=== PATIENT | male | born 1945 ===

== ENCOUNTER 2017-05-20 22:11 | Observation (INO) | payer MEDICARE ==
--- NOTE | 2017-05-20 23:00 | ED PDOC ---
HPI: Pediatric General Time Seen by Provider: 05/20/17 22:26 Chief Complaint (Nursing): Cough, Cold, Congestion Past Medical History Vital Signs: Last Vital Signs Temp 101.2 F H 05/20/17 22:14 Pulse 116 H 05/20/17 22:14 Resp 16 05/20/17 22:14 BP 141/79 05/20/17 22:14 Pulse Ox 100 05/20/17 22:14 - Allergies Allergies/Adverse Reactions: Allergies Allergy/AdvReac Type Severity Reaction Status Date / Time No Known Allergies Allergy Verified 05/20/17 22:14 - ECG O2 Sat by Pulse Oximetry: 100 Disposition - Disposition Forms: [employer] ([place])
--- NOTE | 2017-05-20 23:05 | ED PDOC ---
HPI: CCC, URI, Sore Throat Time Seen by Provider: 05/20/17 22:26 Chief Complaint (Nursing): Cough, Cold, Congestion Chief Complaint (Provider): Fever, Cough, Hiccups History Per: Patient History/Exam Limitations: no limitations Onset/Duration Of Symptoms: Days (x1 day) Current Symptoms Are (Timing): Still Present Associated Symptoms: Fever, Cough, Sputum Additional Complaint(s): Hammad Harrison, a 71 year old female, who has a past medical history of hypertension and diabetes presents to the ED with complaining of cough, fever and hiccups x1 day. The patient reports that his symptoms started this afternoon. e states that the hiccups have resolved but he still has fever and is experiencing some chills. The patient reports that his cough is productive of yellow sputum and that he has chest pain when he coughs. Denies difficulty breathing, vomiting and diarrhea. PMD: Past Medical History Reviewed: Historical Data, Nursing Documentation, Vital Signs Vital Signs: Last Vital Signs Temp 101.2 F H 05/20/17 23:03 Pulse 100 H 05/20/17 23:47 Resp 16 05/20/17 22:14 BP 141/79 05/20/17 22:14 Pulse Ox 100 05/20/17 23:47 - Medical History PMH: HTN, Hyperlipidemia - Surgical History Surgical History: No Surg Hx - Family History Family History: States: Unknown Family Hx - Allergies Allergies/Adverse Reactions: Allergies Allergy/AdvReac Type Severity Reaction Status Date / Time No Known Allergies Allergy Verified 05/20/17 22:14 Curb-65 Severity Score - CURB-65 Severity Score Confusion: No Bun >19mg/dl (>7mmol/L): No Respiratory Rate greater than/equal to 30: No Systolic BP <90 or Diastolic BP less than/equal 60mmHg: No Age >64: Yes Curb-65 Score: 1 Percentage 30-day mortality: 2.7% Review of Systems Constitutional: Positive for: Fever, Chills, Other (Hiccups.) Cardiovascular: Positive for: Chest Pain (Chest Pain with cough.) Respiratory: Positive for: Cough (Cough productiv of yellow sputum.) Gastrointestinal: Negative for: Vomiting, Diarrhea Physical Exam - Reviewed Nursing Documentation Reviewed: Yes Vital Signs Reviewed: Yes - Physical Exam Appears: Positive for: Non-toxic, No Acute Distress Head Exam: Positive for: ATRAUMATIC, NORMAL INSPECTION, NORMOCEPHALIC Skin: Positive for: Normal Color, Warm, Dry Eye Exam: Positive for: Normal appearance, EOMI, PERRL ENT: Positive for: Normal ENT Inspection Neck: Positive for: Normal, Painless ROM, Supple Cardiovascular/Chest: Positive for: Regular Rate, Rhythm, Tachycardia Respiratory: Positive for: Normal Breath Sounds. Negative for: Wheezing, Respiratory Distress Gastrointestinal/Abdominal: Positive for: Normal Exam, Bowel Sounds, Soft. Negative for: Tenderness Back: Positive for: Normal Inspection Extremity: Positive for: Normal ROM. Negative for: Tenderness, Deformity, Swelling Neurologic/Psych: Positive for: Alert, Oriented, Gait - Laboratory Results Result Diagrams: 05/20/17 22:58 05/20/17 22:58 - ECG ECG: Positive for: Interpreted By Me, Viewed By Me ECG Rhythm: Positive for: Normal QRS, Normal ST Segment, Sinus Rhythm, Sinus Tachycardia Rate: 100 O2 Sat by Pulse Oximetry: 100 (RA) Pulse Ox Interpretation: Normal - Radiology X-Ray: Interpreted by Me, Viewed By Me X-Ray Interpretation: Infiltrates (RLL) Medical Decision Making Medical Decision Makin Initial Impression: 71 year old male presenting with fever and cough Differentials: Pnuemonia, Sepsis and other conditions considered Initial Plan: * Venous Blood Gas * EKG * Comp Metabolic Panel * CBC * Chest X-ray * Tylenol 650mg PO * Blood Culture * Influenza A B * Reevaluation Scribe Attestation Documented by Yenifer Cm acting as a scribe for Joaquin Fournier MD. Provider Attestation All medical record entries made by the Scribe were at my direction and personally dictated by me. I have reviewed the chart and agree that the record accurately reflects my personal performance of the history, physical exam, medical decision making, and the department course for this patient. I have also personally directed, reviewed, and agree with the discharge instructions and disposition. Disposition - Clinical Impression Clinical Impression: Pneumonia - Patient ED Disposition Is Patient to be Admitted: Yes Discussed With DrGwen: Bobby Adams Doctor Will See Patient In The: Hospital - Disposition Disposition Time: 23:40 Condition: FAIR - Pt Status Changed To: Hospital Disposition Of: Inpatient - Admit Certification Admit to Inpatient:: After my assessment, the patient will require hospitalization for at least two midnights. This is because of the severity of symptoms shown, intensity of services needed, and/or the medical risk in this patient being treated as an outpatient. - POA Present On Arrival: Poor Glycemic Control Core Measure Indicators: Pneumonia
[2017-05-20 23:07] LABS: BASO % 0.2 % (0.0-2.0); EOS % 0.2 % (0.0-4.0); HEMATOCRIT 37.5 % (35.0-51.0); LYMPH # 1.3 K/uL (1.0-4.3); LYMPH % 8.6 % (20.0-40.0); MEAN CORPUSCULAR HEMOGLOBIN 32.9 pg (27.0-31.0); MEAN CORPUSCULAR HGB CONC 33.6 g/dL (33.0-37.0); MEAN PLATELET VOLUME 9.4 fl (7.2-11.7); MONO # 1.1 K/uL (0.0-0.8); MONO % 7.2 % (0.0-10.0); NEUT # 12.7 K/uL (1.8-7.0); NEUT % 83.8 % (50.0-75.0); PLATELET COUNT 133 K/uL (130-400); RED CELL DISTRIBUTION WIDTH 12.5 % (11.5-14.5); WHITE BLOOD COUNT 15.2 K/uL (4.8-10.8)
[2017-05-20] MEDS ORDERED: Azithromycin 500 MG in Sodium Chloride 0.9% 250 ML IVPB STA (23:15)
[2017-05-20 23:16] LABS: ALB/GLOB RATIO 1.3 (1.0-2.1); BILIRUBIN,TOTAL 0.7 mg/dl (0.2-1.3); CALCIUM 9.3 mg/dL (8.4-10.2); POTASSIUM 4.4 MMOL/L (3.6-5.0); TOTAL PROTEIN 7.9 G/DL (6.3-8.2)
[2017-05-20] MEDS ORDERED: cefTRIAXone (Rocephin) 1 gm Inj ONE (23:20)
[2017-05-21 00:10] LABS: VENOUS BLOOD GAS BASE EXCESS -0.7 mmol/L (0.0-2.0); VENOUS BLOOD GAS MODE ROOM AIR; VENOUS BLOOD GAS PCO2 36 mmHg (40-60); VENOUS BLOOD PH 7.42 (7.32-7.43)
[2017-05-21] MEDS ORDERED: Sodium Chloride 3% for Inhalation 4 ML VIAL.NEB IH PRN ×2 (00:50→01:49)
[2017-05-21 01:23] LABS: NEUTROPHIL 89 % (42-75); TOTAL CELLS COUNTED 100
[2017-05-21 07:00] LABS: ALB/GLOB RATIO 1.2 (1.0-2.1); ALKALINE PHOSPHATASE 59 U/L (38-126); ALT/SGPT 24 U/L (21-72); AST/SGOT 19 U/L (17-59); BILIRUBIN,TOTAL 0.8 mg/dl (0.2-1.3); BLOOD UREA NITROGEN 17 mg/dl (9-20); CALCIUM 9.1 mg/dL (8.4-10.2); CARBON DIOXIDE 27 mmol/L (22-30); CHLORIDE 107 mmol/L (98-107); GFR AFRICAN-AMERICAN > 60; GLUCOSE,RANDOM 176 mg/dL (75-110); POTASSIUM 4.4 MMOL/L (3.6-5.0); SODIUM 141 mmol/l (132-148); TOTAL PROTEIN 7.2 G/DL (6.3-8.2)
[2017-05-21 07:06] LABS: BASO % 0.2 % (0.0-2.0); EOS # 0.1 K/uL (0.0-0.7); EOS % 0.5 % (0.0-4.0); HEMATOCRIT 35.2 % (35.0-51.0); LYMPH % 14.2 % (20.0-40.0); MEAN CELL VOLUME 97.7 fl (80.0-94.0); MEAN CORPUSCULAR HEMOGLOBIN 33.4 pg (27.0-31.0); MEAN CORPUSCULAR HGB CONC 34.2 g/dL (33.0-37.0); MEAN PLATELET VOLUME 9.5 fl (7.2-11.7); MONO # 1.1 K/uL (0.0-0.8); MONO % 7.7 % (0.0-10.0); NEUT # 11.1 K/uL (1.8-7.0); NEUT % 77.4 % (50.0-75.0); NRBC % 0.1 % (0.0-0.0); RED CELL DISTRIBUTION WIDTH 12.7 % (11.5-14.5); WHITE BLOOD COUNT 14.4 K/uL (4.8-10.8)
--- NOTE | 2017-05-21 08:06 | CP.PCM.HP ---
History of Present Illness - History of Present Illness History of Present Illness: A 71 year old male with history of hypertension and diabetes came for fever, sputum and hiccup for one day. He has been taking medicines for hypertension and diabetes and some vitamins. He started hiccupping one day ago. He had fever, and yellowish sputum with cough. He did not have shortness of breath. He is a non-smoker. 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 He had a similar episode 30 years ago. It started with hiccupping and led to choking. Present on Admission - Present on Admission Any Indicators Present on Admission: No History of DVT/PE: No History of Uncontrolled Diabetes: No Urinary Catheter: No Decubitus Ulcer Present: No Review of Systems - Constitutional Constitutional: Chills. absent: Excessive Sweating, Night Sweats - Cardiovascular Cardiovascular: Chest Pain (on coughing). absent: Dyspnea on Exertion - Respiratory Respiratory: Cough. absent: Dyspnea - Gastrointestinal Gastrointestinal: absent: Belching, Early Satiety, Vomiting - Genitourinary Genitourinary: absent: Difficulty Urinating, Dysuria Past Patient History - Past Medical History & Family History Past Medical History?: Yes - Past Social History Smoking Status: Never Smoked - CARDIAC Hx Cardiac Disorders: Yes Hx Hypercholesterolemia: Yes Hx Hypertension: Yes - PULMONARY Hx Respiratory Disorders: No - NEUROLOGICAL Hx Neurological Disorder: No - HEENT Hx HEENT Problems: Yes - RENAL Hx Chronic Kidney Disease: No - ENDOCRINE/METABOLIC Hx Endocrine Disorders: Yes Hx Diabetes Mellitus Type 2: Yes - HEMATOLOGICAL/ONCOLOGICAL Hx Blood Disorders: No - INTEGUMENTARY Hx Dermatological Problems: No - MUSCULOSKELETAL/RHEUMATOLOGICAL Hx Musculoskeletal Disorders: No Hx Falls: No - GASTROINTESTINAL Other/Comment: hx hiccups - GENITOURINARY/GYNECOLOGICAL Hx Genitourinary Disorders: No - PSYCHIATRIC Hx Psychophysiologic Disorder: No Hx Substance Use: No - SURGICAL HISTORY Hx Surgeries: No - ANESTHESIA Hx Anesthesia: No Hx Anesthesia Reactions: No Hx Malignant Hyperthermia: No Has any member of the family had a problem w/ anesthesia?: No Meds Allergies/Adverse Reactions: Allergies Allergy/AdvReac Type Severity Reaction Status Date / Time No Known Allergies Allergy Verified 05/20/17 22:14 Physical Exam - Constitutional Appears: No Acute Distress - Neck Exam Neck exam: Positive for: Full Rom, Normal Inspection - Respiratory Exam Respiratory Exam: Clear to Auscultation Bilateral, NORMAL BREATHING PATTERN - Cardiovascular Exam Cardiovascular Exam: REGULAR RHYTHM, +S1, +S2. absent: Systolic Murmur - GI/Abdominal Exam GI & Abdominal Exam: Normal Bowel Sounds, Soft. absent: Tenderness - Extremities Exam Extremities exam: Positive for: normal inspection. Negative for: joint swelling , pedal edema Results - Vital Signs Recent Vital Signs: Last Vital Signs Temp 99.3 F 05/21/17 00:45 Pulse 100 H 05/21/17 00:35 Resp 16 05/20/17 22:14 BP 141/79 05/20/17 22:14 Pulse Ox 100 05/21/17 00:35 - Labs Result Diagrams: 05/21/17 05:30 05/21/17 05:30 Labs: Laboratory Results - last 24 hr 05/21/17 05/21/17 05:30 05:30 WBC 14.4 H RBC 3.60 L Hgb 12.0 Hct 35.2 MCV 97.7 H MCH 33.4 H MCHC 34.2 RDW 12.7 Plt Count 128 L MPV 9.5 Neut % (Auto) 77.4 H Lymph % (Auto) 14.2 L Camp % (Auto) 7.7 Eos % (Auto) 0.5 Baso % (Auto) 0.2 Neut # 11.1 H Lymph # 2.0 Camp # 1.1 H Eos # 0.1 Baso # 0.0 Sodium 141 Potassium 4.4 Chloride 107 Carbon Dioxide 27 Anion Gap 12 BUN 17 Creatinine 1.4 Est GFR ( Amer) > 60 Est GFR (Non-Af Amer) 50 Random Glucose 176 H Calcium 9.1 Total Bilirubin 0.8 AST 19 ALT 24 Alkaline Phosphatase 59 Total Protein 7.2 Albumin 4.0 Globulin 3.3 Albumin/Globulin Ratio 1.2 Assessment & Plan - Assessment and Plan (Free Text) Assessment: A 71 year old male came with fever, productive cough chest X-ray mild RLL infiltration leukocytosis DM HTN Plan: blood and sputum culture iv antibiotics, Rocephin and zithromax DM and BP control - Date & Time Date: 05/21/17 Time: 08:09
[2017-05-21] MEDS ORDERED: Ergocalciferol 50,000 Intl Units Cap PO SCH (08:15)
[2017-05-21] MEDS: Azithromycin 500 MG in Sodium Chloride 0.9% 250 ML IVPB SCH (08:22)
[2017-05-21] MEDS: Insulin Regular 100 units/ml SC SCH ×4 (08:30→23:00)
--- NOTE | 2017-05-21 10:12 | CARD ---
APPROVED REPORT EKG Measurement Heart [id number] <Conclusion> Normal sinus rhythm Normal ECG
--- NOTE | 2017-05-21 12:00 | RAD ---
HISTORY: cough fever COMPARISON: 09/29/2012 TECHNIQUE: Chest PA and lateral FINDINGS: LUNGS: No active pulmonary disease. PLEURA: No significant pleural effusion identified. No pneumothorax apparent. CARDIOVASCULAR: Normal. OSSEOUS STRUCTURES: No significant abnormalities. VISUALIZED UPPER ABDOMEN: Normal. OTHER FINDINGS: None. IMPRESSION: No active disease.
[2017-05-21] MEDS: diltiaZEM 180 mg/24 Hours CD Cap PO SCH (12:33)
[2017-05-21] MEDS: Enoxaparin 40 mg Syringe SC SCH (12:36)
[2017-05-21] MEDS: Levothyroxine 88 MCG TAB PO SCH (12:38)
[2017-05-21] MEDS: Metoprolol Succinate 25 mg XL Tab PO SCH ×4 (12:38→12:45)
[2017-05-21] MEDS: HYDROCHLOROTHIAZIDE PO SCH (17:03)
[2017-05-21] MEDS: LOSARTAN PO SCH (17:03)
[2017-05-21] MEDS: PARICALCITOL 1 MCG PO SCH (17:04)
[2017-05-22] MEDS: Levothyroxine 88 MCG TAB PO SCH (06:46)
--- NOTE | 2017-05-22 07:42 | CP.PCM.PN ---
Subjective - Date & Time of Evaluation Date of Evaluation: 05/22/17 Time of Evaluation: 07:35 - Subjective Subjective: hiccupping yesterday Benadryl po one does was given. he thinks something is inside his chest denies dysphagia Objective - Vital Signs/Intake and Output Vital Signs (last 24 hours): Temp Pulse Resp BP Pulse Ox 98.1 F 62 19 124/72 98 05/22/17 00:43 05/22/17 00:43 05/22/17 00:43 05/22/17 00:43 05/22/17 00:43 - Medications Medications: Current Medications Acetaminophen (Tylenol 325mg Tab) 650 mg PO Q6 PRN PRN Reason: Pain, moderate (4-7) Diltiazem HCl (Cardizem Cd) 180 mg PO DAILY [facility] Last Admin: 05/21/17 12:33 Dose: 180 mg Enoxaparin Sodium (Lovenox) 40 mg SC DAILY [facility] PRN Reason: Protocol Last Admin: 05/21/17 12:36 Dose: 40 mg Ergocalciferol (Drisdol 50,000 Intl Units Cap) 1 cap PO QWK [facility] Home Med (Febuxostat [Uloric]) 40 mg PO QOTHERDAY [facility] Last Admin: 05/21/17 17:04 Dose: 40 mg Home Med (Losartan/Hydrochlorothiazide [Losartan-Hctz 100-12.5 Mg Tab]) 100 mg PO DAILY [facility] Last Admin: 05/21/17 17:03 Dose: 100 mg Home Med (Paricalcitol [Paricalcitol]) 1 mcg PO QOTHERDAY [facility] Last Admin: 05/21/17 17:04 Dose: 1 mcg Ceftriaxone Sodium 1 gm/ (Sodium Chloride) 100 mls @ 100 mls/hr IVPB DAILY [facility] Last Admin: 05/21/17 08:22 Dose: 100 mls/hr Azithromycin 500 mg/ Sodium (Chloride) 250 mls @ 250 mls/hr IVPB DAILY [facility] Last Admin: 05/21/17 08:22 Dose: 250 mls/hr Insulin Human Regular (Humulin R) 0 units SC ACCU-CHECK [facility] PRN Reason: Protocol Last Admin: 05/21/17 23:00 Dose: Not Given Levothyroxine Sodium (Synthroid) 88 mcg PO DAILY@0630 [facility] Last Admin: 05/22/17 06:46 Dose: 88 mcg Metoprolol Succinate (Toprol Xl) 25 mg PO DAILY [facility] Last Admin: 05/21/17 12:45 Dose: 25 mg Sevelamer HCl (Renagel) 800 mg PO BID [facility] Last Admin: 05/21/17 17:04 Dose: 800 mg Sitagliptin Phosphate (Januvia) 100 mg PO DAILY [facility] Tamsulosin HCl (Flomax) 0.4 mg PO DAILY [facility] Last Admin: 05/21/17 12:54 Dose: 0.4 mg - Labs Labs: 05/21/17 05:30 05/21/17 05:30 - Constitutional Appears: Non-toxic - Respiratory Exam Respiratory Exam: NORMAL BREATHING PATTERN - Cardiovascular Exam Cardiovascular Exam: REGULAR RHYTHM, +S1, +S2. absent: Murmur - GI/Abdominal Exam GI & Abdominal Exam: Normal Bowel Sounds Assessment and Plan - Assessment and Plan (Free Text) Assessment: clinical pneumonia on iv Rocephin and zithromax HTN DM Plan: trial of metoclopramide for hiccupping continue iv rocephin and zithromax
[2017-05-22] MEDS: diltiaZEM 180 mg/24 Hours CD Cap PO SCH (08:46)
[2017-05-22] MEDS: Metoprolol Succinate 25 mg XL Tab PO SCH (08:47)
[2017-05-22] MEDS: HYDROCHLOROTHIAZIDE PO SCH (08:47)
[2017-05-22] MEDS: LOSARTAN PO SCH (08:47)
[2017-05-22] MEDS: Insulin Regular 100 units/ml SC SCH ×4 (08:48→22:22)
[2017-05-22] MEDS ORDERED: guaiFENesin-DM 600-30 mg ER Tab PO SCH (09:00)
[2017-05-22] MEDS: Azithromycin 500 MG in Sodium Chloride 0.9% 250 ML IVPB SCH (12:14)
[2017-05-22] MEDS: Enoxaparin 40 mg Syringe SC SCH (12:14)
[2017-05-23] MEDS: Levothyroxine 88 MCG TAB PO SCH (06:44)
[2017-05-23 07:38] LABS: BASO % 0.3 % (0.0-2.0); EOS # 0.2 K/uL (0.0-0.7); EOS % 1.4 % (0.0-4.0); HEMATOCRIT 34.8 % (35.0-51.0); LYMPH # 2.6 K/uL (1.0-4.3); LYMPH % 24.2 % (20.0-40.0); MEAN CORPUSCULAR HEMOGLOBIN 34.1 pg (27.0-31.0); MEAN CORPUSCULAR HGB CONC 34.8 g/dL (33.0-37.0); MEAN PLATELET VOLUME 8.9 fl (7.2-11.7); MONO % 9.1 % (0.0-10.0); NRBC % 0.1 % (0.0-0.0); RED CELL DISTRIBUTION WIDTH 12.9 % (11.5-14.5); WHITE BLOOD COUNT 10.7 K/uL (4.8-10.8)
[2017-05-23 07:47] LABS: ALB/GLOB RATIO 1.1 (1.0-2.1); ALKALINE PHOSPHATASE 62 U/L (38-126); ALT/SGPT 32 U/L (21-72); AST/SGOT 17 U/L (17-59); BILIRUBIN,TOTAL 0.5 mg/dl (0.2-1.3); BLOOD UREA NITROGEN 18 mg/dl (9-20); CALCIUM 9.5 mg/dL (8.4-10.2); CARBON DIOXIDE 25 mmol/L (22-30); CHLORIDE 106 mmol/L (98-107); CHOLESTEROL 130 mg/dL (0-199); GFR AFRICAN-AMERICAN > 60; GLUCOSE,RANDOM 141 mg/dL (75-110); POTASSIUM 4.5 MMOL/L (3.6-5.0); SODIUM 140 mmol/l (132-148); TOTAL PROTEIN 7.4 G/DL (6.3-8.2)
[2017-05-23] MEDS: Insulin Regular 100 units/ml SC SCH ×3 (07:47→17:45)
[2017-05-23] MEDS: diltiaZEM 180 mg/24 Hours CD Cap PO SCH (08:57)
[2017-05-23] MEDS: LOSARTAN PO SCH (08:59)
[2017-05-23] MEDS: PARICALCITOL 1 MCG PO SCH (08:59)
[2017-05-23] MEDS: Enoxaparin 40 mg Syringe SC SCH (08:59)
[2017-05-23] MEDS: HYDROCHLOROTHIAZIDE PO SCH (08:59)
[2017-05-23] MEDS: guaiFENesin-DM 600-30 mg ER Tab PO SCH ×2 (08:59→17:46)
[2017-05-23] MEDS: Metoprolol Succinate 25 mg XL Tab PO SCH (09:00)
[2017-05-23] MEDS: Azithromycin 500 MG in Sodium Chloride 0.9% 250 ML IVPB SCH (09:05)
[2017-05-23 16:27] VITALS: BP 139/80; PULSE 77; RESP 17; TEMP 97.9; O2SAT 100
--- NOTE | 2017-05-23 17:09 | CP.PCM.PN ---
Subjective - Date & Time of Evaluation Date of Evaluation: 05/23/17 Time of Evaluation: 17:06 - Subjective Subjective: no hiccupping any more no fever no cough high fingerstick sugar 305 Objective - Vital Signs/Intake and Output Vital Signs (last 24 hours): Temp Pulse Resp BP Pulse Ox 97.9 F 77 17 139/80 100 05/23/17 16:26 05/23/17 16:26 05/23/17 16:26 05/23/17 16:26 05/23/17 16:26 - Medications Medications: Current Medications Acetaminophen (Tylenol 325mg Tab) 650 mg PO Q6 PRN PRN Reason: Pain, moderate (4-7) Diltiazem HCl (Cardizem Cd) 180 mg PO DAILY [facility] Last Admin: 05/23/17 08:57 Dose: 180 mg Enoxaparin Sodium (Lovenox) 40 mg SC DAILY [facility] PRN Reason: Protocol Last Admin: 05/23/17 08:59 Dose: 40 mg Ergocalciferol (Drisdol 50,000 Intl Units Cap) 1 cap PO QWK [facility] Guaifenesin/Dextromethorphan (Mucinex-Dm 600-30 Mg) 1 tab PO BID [facility] Last Admin: 05/23/17 08:59 Dose: 1 tab Home Med (Febuxostat [Uloric]) 40 mg PO QOTHERDAY [facility] Last Admin: 05/23/17 08:58 Dose: 40 mg Home Med (Losartan/Hydrochlorothiazide [Losartan-Hctz 100-12.5 Mg Tab]) 100 mg PO DAILY [facility] Last Admin: 05/23/17 08:59 Dose: 100 mg Home Med (Paricalcitol [Paricalcitol]) 1 mcg PO QOTHERDAY [facility] Last Admin: 05/23/17 08:59 Dose: 1 mcg Ceftriaxone Sodium 1 gm/ (Sodium Chloride) 100 mls @ 100 mls/hr IVPB DAILY [facility] Last Admin: 05/23/17 09:06 Dose: 100 mls/hr Azithromycin 500 mg/ Sodium (Chloride) 250 mls @ 250 mls/hr IVPB DAILY [facility] Last Admin: 05/23/17 09:05 Dose: 250 mls/hr Insulin Human Regular (Humulin R) 0 units SC ACCU-CHECK [facility] PRN Reason: Protocol Last Admin: 05/23/17 12:02 Dose: 6 units Levothyroxine Sodium (Synthroid) 88 mcg PO DAILY@0630 [facility] Last Admin: 05/23/17 06:44 Dose: 88 mcg Metoclopramide HCl (Reglan) 5 mg PO ACHS [facility] Last Admin: 05/23/17 12:07 Dose: 5 mg Metoprolol Succinate (Toprol Xl) 25 mg PO DAILY [facility] Last Admin: 05/23/17 09:00 Dose: 25 mg Sevelamer HCl (Renagel) 800 mg PO BID [facility] Last Admin: 05/23/17 09:00 Dose: 800 mg Sitagliptin Phosphate (Januvia) 100 mg PO DAILY [facility] Last Admin: 05/23/17 08:58 Dose: 100 mg Tamsulosin HCl (Flomax) 0.4 mg PO DAILY [facility] Last Admin: 05/23/17 08:58 Dose: 0.4 mg - Labs Labs: 05/23/17 06:00 05/23/17 06:00 - Constitutional Appears: Non-toxic, No Acute Distress - Respiratory Exam Respiratory Exam: Clear to Ausculation Bilateral. absent: Rales - Cardiovascular Exam Cardiovascular Exam: REGULAR RHYTHM. absent: Murmur Assessment and Plan - Assessment and Plan (Free Text) Assessment: RLL pneumonia long history of diabetes uncontrolled diabetes normal chest X-ray Plan: patient wants to be discharged home saying that his byke is around here. D/C pt home he says has his PMD, Dr. Mendez and a digital manager, Dr. Rivers.
[2017-05-23] MEDS ORDERED: Pneumococcal 23-Valent Vaccine IM ONE (17:45)
== END 2017-05-23 18:27 ==
LOC: H.ER 22:11 → H.ERHOLD 23:49 → INTOOBSV 23:49 → H.MEDSURG1 05-21 01:33
PROVIDERS: ADMIT Internal Medicine; ATTEND Internal Medicine
PROC: 3E0234Z Introduction of Serum, Toxoid and Vaccine into Muscle, Percutaneous Approach (ICD-10-PCS; principal; 2017-05-23)
DX: J18.9 Pneumonia, unspecified organism (principal); E11.65 Type 2 diabetes mellitus with hyperglycemia; E78.00 Pure hypercholesterolemia, unspecified; E78.5 Hyperlipidemia, unspecified; I10 Essential (primary) hypertension; J02.9 Acute pharyngitis, unspecified; Z23 Encounter for immunization
CPT/HCPCS: 36415; 71020; 80053; 80061; 82803; 82948; 83036; 85025; 87040; 87070; 87086; 87804; 90732; 93005; 96365; 96366; 96367; 96372; 99281; G0009; G0378; J0456; J0696; J1650; J2765; J7050